=== PATIENT | male | born 1940 | race Caucasian/White ===

== ENCOUNTER → 2023-10-11 09:52 | Outpatient (REF) | payer BC, SELFPAY | LOC: RAD 09:52 | PROVIDERS: ATTENDING PHYSICIAN Internal Medicine Geriatric Medicine | DX: Z00.00 Encounter for general adult medical examination without abnormal findings (principal); K21.9 Gastro-esophageal reflux disease without esophagitis; R73.01 Impaired fasting glucose; I51.7 Cardiomegaly; I83.813 Varicose veins of bilateral lower extremities with pain; E78.2 Mixed hyperlipidemia; L56.5 Disseminated superficial actinic porokeratosis (DSAP); Z13.89 Encounter for screening for other disorder; J44.9 Chronic obstructive pulmonary disease, unspecified; N18.9 Chronic kidney disease, unspecified; I73.9 Peripheral vascular disease, unspecified; M54.50 Low back pain, unspecified | CPT/HCPCS: 93922; 93925 ==

== ENCOUNTER → 2023-10-27 07:36 | Outpatient (REF) | payer BC, SELFPAY | LOC: HWRAD 07:36 | PROVIDERS: ATTENDING PHYSICIAN Internal Medicine Geriatric Medicine | DX: K21.9 Gastro-esophageal reflux disease without esophagitis (principal); R73.01 Impaired fasting glucose; I51.7 Cardiomegaly; I83.813 Varicose veins of bilateral lower extremities with pain; E78.2 Mixed hyperlipidemia; L56.5 Disseminated superficial actinic porokeratosis (DSAP); J44.9 Chronic obstructive pulmonary disease, unspecified; N18.9 Chronic kidney disease, unspecified; I73.9 Peripheral vascular disease, unspecified; M54.50 Low back pain, unspecified; S32.018 Other fracture of first lumbar vertebra; Z13.89 Encounter for screening for other disorder | CPT/HCPCS: 77080 ==

== ENCOUNTER → 2023-11-25 12:46 | Outpatient (REF) | payer BC, SELFPAY | LOC: RAD 12:46 | PROVIDERS: ATTENDING PHYSICIAN Surgery Vascular Surgery | DX: Z13.6 Encounter for screening for cardiovascular disorders (principal) | CPT/HCPCS: 76770 ==

== ENCOUNTER → 2024-04-13 09:39 | Outpatient (REF) | payer BC, SELFPAY | LOC: RAD 09:39 | PROVIDERS: ATTENDING PHYSICIAN Surgery Vascular Surgery; FAMILY PHYSICIAN Internal Medicine Geriatric Medicine | DX: I73.9 Peripheral vascular disease, unspecified (principal) | CPT/HCPCS: 93922; 93925 ==

== ENCOUNTER 2024-05-10 08:30 | Day surgery (SDC) | payer BC, SELFPAY ==
[2024-05-08 10:28] VITALS: BMI 26.9
[2024-05-08 11:50] LABS: % Basophils 1.3 % (0-2); % Eosinophils 6.1 % (0-6); % Immature Granulocytes 0.3 % (0-0.5); % Lymphocytes 23.6 % (20.5-51.1); % Monocytes 10.2 % (1.7-9.3); % Neutrophils 58.5 % (42.2-75.2); Absolute Basophils 0.1 10^3/uL (0-0.2); Absolute Eosinophils 0.4 10^3/uL (0-0.7); Absolute Lymphocytes 1.5 10^3/uL (1.2-3.4); Absolute Monocytes 0.7 10^3/uL (0.1-0.6); Absolute Neutrophils 3.7 10^3/uL (1.4-6.5); Hematocrit 43.4 % (39.0-52.0); Hemoglobin 14.6 g/dL (13.0-18.0); Mean Corp Hgb Conc. 33.6 g/dL (33.0-37.0); Mean Corpuscular Hgb 32.2 pg (27.0-31.0); Mean Corpuscular Volume 95.8 fL (80.0-94.0); Mean Platelet Volume 11.3 fL (7.4-10.4); Nucleated Red Blood Cells % 0 % (-); Platelet Count 224 10^3/uL (130-400); Red Blood Cell Count 4.53 10^6/uL (4.70-6.10); Red Cell Dist. Width 13.2 % (11.5-14.5); White Blood Cell Count 6.4 10^3/uL (4.8-10.8)
[2024-05-08 11:59] LABS: INR 1.05; PT 13.5 Sec (11.4-14.6)
[2024-05-08 12:00] LABS: APTT 29.7 Sec (23.4-35.0)
[2024-05-08 12:59] LABS: Blood Urea Nitrogen 17 mg/dl (9-20); Calcium 10.2 mg/dl (8.4-10.2); Carbon Dioxide 29 mmol/L (22-30); Chloride 104 mmol/L (98-107); Estimated Creatinine Clearance 39 ml/min; Glucose 106 mg/dl (70-99); Potassium 5.1 mmol/L (3.5-5.1); Sodium 142 mmol/L (135-145); eGFR 49.56
[2024-05-10] VITALS (9 sets, daily range): BP systolic 135–187; BP diastolic 73–92; BMI 26.3
--- NOTE | 2024-05-10 09:45 | W.SUR.PREOP ---
Pre-Operative Surgical Note
-
I have examined this patient prior to the performance of the scheduled procedure.
The patient's condition is unchanged from the time of the current History and
Physical and the patient is able to undergo the scheduled procedure.
--- NOTE | 2024-05-10 11:39 | W.SUR.POST ---
Surgical Immediate Post Op
Note
Pre Op Diagnosis: PAD
Post Op Diagnosis: PAD
Procedure Performed: Right extremity angiogram, right SFA angioplasty and stent, VBX to right external iliac
Primary Surgeon: Kian
Anesthesia: Local and sedation
Estimated Blood Loss: Less than 2 cc
Fluids: Anesthesia flowsheet
Drains/Shunts: None
Specimens/Cultures: None
Doppler/Duplex/Angio (Y/N): Y
Complications: None
Operative Findings: Successful stent placement
[2024-05-10] MEDS: PLAVIX 300 MG PO (12:43)
--- NOTE | 2024-05-10 15:42 | PTCARENOTE ---
Patient and RN with at bedside reviewed discharge instructions. Patient and stated understanding. No s/s of infection at femoral site. no hematoma noted. Patients iv removal tolerated well. patient discharged via wheelchair to wifes
care.
--- NOTE | 2024-05-11 16:39 | OR.RPT ---
Operative Report
Operative Report
PROCEDURE DATE: 05/10/2024
Preoperative diagnosis: Debilitating right lower extremity claudication.
Postoperative diagnosis: Same
Procedure:
1. Duplex assisted left common femoral artery cannulation.
2. Aortogram and pelvic angiogram.
3. Right lower extremity arteriogram with third order vessel catheterization of right popliteal artery via left common femoral artery puncture.
4. Subintimal recanalization of occluded right superficial femoral artery and balloon angioplasty with 4 mm angioplasty balloon.
5. Stent placement with [employer] Zilver 6 mm x 140 mm PTX drug-eluting self-expanding stent right superficial femoral artery.
6. Balloon angioplasty and stent placement right distal external iliac artery with 7 mm x 39 mm Wynona VBX balloon mounted covered stent, with post dilation with 9 mm angioplasty balloon.
7. Left femoral angiogram.
8. Perclose percutaneous closure left common femoral artery.
9. Supervision interpretation.
Surgeon: Kian
Data Entry Processor: None
Complications: None
Anesthesia: Local, sedation
Fluoroscopy:
20.5 min
168 mGy
36.70 Gy.cm2
Indications for procedure:
Debilitating right lower extremity claudication. Risk/benefit/alternatives of revascularization all fully discussed. Patient understood all wish to proceed.
Description of procedure:
Patient was identified, brought to the operating room. Placed on the table in the supine position. After the adequate administration of anesthesia, the patient was prepped and draped in the standard surgical fashion. A standard preoperative
timeout was undertaken and everybody was in agreement with the plan.
The left common femoral artery was accessed with a micropuncture kit under direct duplex ultrasound guidance. A 5 [place] sheath was then advanced over a 0.035 inch wire, and a mccann's hook catheter was advanced into the abdominal aorta.
Aortogram and pelvic angiogram was obtained. Findings as follows:
Patent, tortuous distal infrarenal abdominal aorta and bilateral iliac arteries. Bilateral common iliac arteries appear generally patent. Left external iliac artery appeared patent. Right external iliac artery was poorly visualized at this time,
but did not demonstrate a definitive stenosis.
Using a floppy angled hydrophilic wire, the right common femoral artery was cannulated and the catheter was advanced. Right lower extremity arteriogram was obtained. Findings as follows:
Common femoral artery: Patent with no significant stenosis
Profunda femoris artery: Patent with no significant stenosis
Superficial femoral artery: Patent with slow flow and occlusion in mid superficial femoral artery. Reconstituted flow in distal superficial femoral artery.
Popliteal artery: Patent with no significant stenosis.
Infrapopliteal runoff consisted of three-vessel runoff proximally. However distally the dominant runoff vessel was the posterior tibial artery and peroneal artery. Peroneal artery gave rise to a single collateral at the ankle.
At this point I selectively cannulated the superficial femoral artery and then exchanged for an up and over 6 [place] sheath over a Storq wire. I give the patient an appropriate dose of heparin. Now under roadmap assisted guidance using a flopping
of hydrophilic wire and a CXI catheter I tried to gain subintimal access to traverse the occlusion. Initially I got into some subintimal plane and I could not reenter the artery. It appeared that I was outside of the vessel potentially. Therefore
I then pulled my catheter back and tried again and was able to enter a new subintimal plane. I was able to J loop of the wire and push through and gain purchase in this subintimal plane, and then advance my catheter to follow-up. I then was able
to reenter the true lumen. Angiogram confirmed I was in the true lumen. I therefore then exchanged for a Storq wire. I now angioplastied the occluded superficial femoral artery segment with a 4 mm angioplasty balloon. I then primarily stented
this segment using a 6 mm x 140 mm [employer] Zilver PTX self-expanding drug-eluting stent. This was post angioplastied with a 5 mm angioplasty balloon. Completion angiogram now demonstrated excellent result with no residual stenosis and patent flow
into the runoff. At this point I withdrew my sheath to the right common iliac artery. I now better image to the right external iliac artery and I could see what appeared to be a significant filling defect in the distal external iliac artery. I
could not tell whether this was a twist or kink in the artery created by the wire or other, or alternatively whether there is a true stenosis with plaque here. Regardless the I looked in different obliquities and there is definitely a filling
defect here. Therefore elected to primarily stent this. I used a 7 mm x 39 mm Wynona VBX covered stent in the case that there was some thrombus there. I used this I sent so I would not have to upsized the sheath. This was deployed/ballooned into
place in the standard fashion. However it did not oppose the wall as well distally. Therefore then post angioplastied with an 8 mm and then 9 mm angioplasty balloon. Now would oppose the wall well and a completion angiogram demonstrated excellent
result with no residual stenosis. At this point is very satisfied. I withdrew the sheath to the left external iliac artery. Left femoral angiogram demonstrated good puncture in the left common femoral artery. I therefore then used a Perclose
percutaneous suture device to close the common femoral artery. Manual pressure was also applied. Hemostasis was fully achieved.
The patient tolerated procedure well. He had a palpable right PT pulse upon completion.
== END 2024-05-10 15:44 | disposition home or self-care (01) ==
LOC: CATH 08:30
PROVIDERS: ATTENDING PHYSICIAN Surgery Vascular Surgery; FAMILY PHYSICIAN Internal Medicine Geriatric Medicine
DX: I70.211 Atherosclerosis of native arteries of extremities with intermittent claudication, right leg (principal); J44.9 Chronic obstructive pulmonary disease, unspecified; M19.90 Unspecified osteoarthritis, unspecified site; Z87.891 Personal history of nicotine dependence
CPT/HCPCS: 37221; 37226; 36415; 75625; 75716; 80048; 85025; 85610; 85730; 86850; 86900; 86901; 93005; C1725; C1760; C1769; C1874; C1887; C1894; Q9967

== ENCOUNTER → 2024-06-18 14:28 | Outpatient (REF) | payer BC, SELFPAY | LOC: DHVS 14:28 | PROVIDERS: ATTENDING PHYSICIAN Surgery Vascular Surgery; FAMILY PHYSICIAN Internal Medicine Geriatric Medicine | DX: I73.9 Peripheral vascular disease, unspecified (principal) | CPT/HCPCS: 93922; 93925; 93978 ==

== ENCOUNTER → 2024-08-23 13:31 | Outpatient (REF) | payer BC, SELFPAY | LOC: RCS 13:31 | PROVIDERS: ATTENDING PHYSICIAN Internal Medicine Geriatric Medicine | DX: Z00.00 Encounter for general adult medical examination without abnormal findings (principal); E78.2 Mixed hyperlipidemia; K21.9 Gastro-esophageal reflux disease without esophagitis; R06.09 Other forms of dyspnea; R73.01 Impaired fasting glucose; I51.7 Cardiomegaly | CPT/HCPCS: 93017; 93350 ==

== ENCOUNTER → 2024-09-10 09:58 | Outpatient (REF) | payer BC, SELFPAY | LOC: HWRCS 09:58 | PROVIDERS: ATTENDING PHYSICIAN Internal Medicine Geriatric Medicine | DX: E78.2 Mixed hyperlipidemia (principal); K21.9 Gastro-esophageal reflux disease without esophagitis; R73.01 Impaired fasting glucose; I51.7 Cardiomegaly; I83.813 Varicose veins of bilateral lower extremities with pain; L56.5 Disseminated superficial actinic porokeratosis (DSAP); J44.9 Chronic obstructive pulmonary disease, unspecified; N18.9 Chronic kidney disease, unspecified; I73.9 Peripheral vascular disease, unspecified; Z13.89 Encounter for screening for other disorder; M54.50 Low back pain, unspecified; S32.018 Other fracture of first lumbar vertebra; R06.09 Other forms of dyspnea | CPT/HCPCS: 93306 ==

== ENCOUNTER → 2025-01-07 09:45 | Outpatient (REF) | payer BC, SELFPAY | LOC: RAD 09:45 | PROVIDERS: ATTENDING PHYSICIAN Physician Assistant; FAMILY PHYSICIAN Internal Medicine Geriatric Medicine | DX: I73.9 Peripheral vascular disease, unspecified (principal) | CPT/HCPCS: 93922; 93925; 93978 ==

== ENCOUNTER → 2025-01-31 08:36 | Outpatient (REF) | payer BC, SELFPAY | LOC: HWRAD 08:36 | PROVIDERS: ATTENDING PHYSICIAN Internal Medicine Critical Care Medicine; FAMILY PHYSICIAN Internal Medicine Geriatric Medicine | DX: R94.2 Abnormal results of pulmonary function studies (principal) | CPT/HCPCS: 71250 ==

== ENCOUNTER → 2025-02-21 13:49 | Outpatient (REF) | payer BC, SELFPAY | LOC: RAD 13:49 | PROVIDERS: ATTENDING PHYSICIAN Internal Medicine Critical Care Medicine; FAMILY PHYSICIAN Internal Medicine Geriatric Medicine | DX: R94.2 Abnormal results of pulmonary function studies (principal); J44.9 Chronic obstructive pulmonary disease, unspecified; R06.02 Shortness of breath; J98.6 Disorders of diaphragm | CPT/HCPCS: 71046; 78582; A9540; A9567 ==

== ENCOUNTER → 2025-02-25 13:25 | Outpatient (REF) | payer BC, SELFPAY | LOC: RAD 13:25 | PROVIDERS: ATTENDING PHYSICIAN Internal Medicine Critical Care Medicine; FAMILY PHYSICIAN Internal Medicine Geriatric Medicine | DX: J98.6 Disorders of diaphragm (principal) | CPT/HCPCS: 71046; 76000 ==

== ENCOUNTER → 2025-03-25 10:44 | Outpatient (REF) | payer BC, SELFPAY | LOC: RAD 10:44 | PROVIDERS: ATTENDING PHYSICIAN Physician Assistant Surgical; FAMILY PHYSICIAN Internal Medicine Geriatric Medicine | DX: S05.50XA Penetrating wound with foreign body of unspecified eyeball, initial encounter (principal) | CPT/HCPCS: 70030 ==

== ENCOUNTER → 2025-05-02 09:27 | Outpatient (REF) | payer BC, SELFPAY | LOC: WDC 09:27 | PROVIDERS: ATTENDING PHYSICIAN Nurse Practitioner Adult Health | DX: N63.11 Unspecified lump in the right breast, upper outer quadrant (principal) | CPT/HCPCS: 76642 ==

== ENCOUNTER → 2025-05-03 09:58 | Outpatient (REF) | payer BC, SELFPAY | LOC: HWRAD 09:58 | PROVIDERS: ATTENDING PHYSICIAN Internal Medicine Critical Care Medicine; FAMILY PHYSICIAN Internal Medicine Geriatric Medicine | DX: T17.500A Unspecified foreign body in bronchus causing asphyxiation, initial encounter (principal); R93.89 Abnormal findings on diagnostic imaging of other specified body structures | CPT/HCPCS: 71250 ==

== ENCOUNTER → 2025-06-21 12:38 | Outpatient (REF) | payer MEDICARE, BC, SELFPAY | LOC: RAD 12:38 | PROVIDERS: ATTENDING PHYSICIAN Surgery Vascular Surgery | DX: I73.9 Peripheral vascular disease, unspecified (principal) | CPT/HCPCS: 93922; 93925; 93978 ==